=== PATIENT | male | born 1950 | race Caucasian/White ===

== ENCOUNTER → 2020-12-29 13:49 | Outpatient (BNVA) | payer MEDICARE, SELFPAY | PROVIDERS: PCP Internal Medicine; Visit Provider Orthopaedic Surgery | DX: M12.811 Other specific arthropathies, not elsewhere classified, right shoulder (principal) | CPT/HCPCS: 20610; 99202; J1100 ==

== ENCOUNTER 2021-02-26 08:20 | Outpatient (REF) | payer MEDICARE, SELFPAY | END 2021-02-26 08:21 | disposition home or self-care (01) | LOC: HO.HOSX 08:20 | PROVIDERS: Visit Provider Orthopaedic Surgery | DX: Z13.89 Encounter for screening for other disorder (principal) ==